=== PATIENT | male | born 1955 | race Caucasian/White ===

== ENCOUNTER 2022-07-19 18:34 | Emergency (ER) | payer MEDICARE, OTHER ==
[2022-07-19] MEDS ORDERED: ONDANSETRON 4 MG/2 ML VIAL IVP STA (19:04)
[2022-07-19] MEDS ORDERED: HYDROmorphone 1 MG/ML CARPUJECT IVP STA (19:04)
[2022-07-19 19:18] LABS: BASOPHILS # (AUTO) 0.1 10^3/uL (0.0-0.1); EOSINOPHILS # (AUTO) 0.2 10^3/uL (0.0-0.7); EOSINOPHILS % (AUTO) 2.1 %; HCT - HEMATOCRIT 26.9 % (42.0-52.0); HGB - HEMOGLOBIN 7.9 g/dL (14.0-18.0); LYMPHOCYTES # (AUTO) 1.2 10^3/uL (1.5-3.5); LYMPHOCYTES % (AUTO) 16.6 %; MEAN CORPUSCULAR HEMOGLOBIN 20.3 pg (27.0-31.0); MEAN CORPUSCULAR HGB CONC 29.4 g/dL (32.0-36.0); MEAN PLATELET VOLUME 8.3 fL (7.4-11.4); MONOCYTES # (AUTO) 0.6 10^3/uL (0.0-1.0); MONOCYTES % (AUTO) 7.9 %; NEUTROPHILS % (AUTO) 72.1 %; PLT - PLATELET COUNT 358 10^3/uL (130-450); RED CELL DISTRIBUTION WIDTH 20.2 % (12.0-15.0)
[2022-07-19 19:20] LABS: SLIDE REVIEW? Indicated
[2022-07-19 19:34] LABS: INR 1.9 (0.8-1.2); PT - PROTHROMBIN TIME 20.5 secs (9.9-12.6)
[2022-07-19 19:36] LABS: ALBUMIN 4.5 g/dL (3.2-5.5); ALBUMIN/GLOBULIN RATIO 1.5 (1.0-2.2); ALKALINE PHOSPHATASE 80 IU/L (42-121); ALT ALANINE AMINOTRANSFERASE 22 IU/L (10-60); AST ASPARTATE AMINOTRANSFERASE 26 IU/L (10-42); BILIRUBIN,TOTAL 0.5 mg/dL (0.2-1.0); BUN - BLOOD UREA NITROGEN 31 mg/dL (6-20); CALCIUM 9.2 mg/dL (8.5-10.3); CARBON DIOXIDE - CO2 24 mmol/L (21-32); CHLORIDE 106 mmol/L (101-111); CREATININE 1.2 mg/dL (0.6-1.2); ETOH - ETHANOL < 5.0 mg/dL; GFR - MDRD 60 (>89); GLUCOSE 102 mg/dL (70-100); LIPASE 45 U/L (22-51); POTASSIUM 4.4 mmol/L (3.5-5.0); SODIUM 139 mmol/L (135-145); TOTAL PROTEIN 7.6 g/dL (6.7-8.2)
[2022-07-19 19:38] LABS: PLATELET ESTIMATE, MANUAL NORMAL (130-450,000) (NORMAL); PLATELET MORPHOLOGY NORMAL APPEARANCE (NORMAL); WBC MORPHOLOGY (MULTIPLE) NORMAL APPEARANCE (NORMAL)
--- NOTE | 2022-07-19 19:56 | CT Report ---
PROCEDURE: HEAD WO INDICATIONS: FALL OFF LADDER ON WARFARIN TECHNIQUE: Noncontrast 4.5 mm thick angled axial sections acquired from the foramen magnum to the vertex. For r adiation dose reduction, the following was used: automated exposure control, adjustment of mA and/or kV according to patient size. COMPARISON: None. FINDINGS: Image quality: Excellent. CSF spaces: Basal cisterns are patent. No extra-axial fluid collections. Ventricles are normal in size and shape. Brain: No midline shift. No intracranial masses or hemorrhage. Lopez-white matter interface is norm al. Skull and face: Calvarium and visualized facial bones are intact, without suspicious lesions. Sinuses: Visualized sinuses and mastoids are clear. IMPRESSION: No evidence acute intracranial process. Reviewed by: Blu Barraza MD on 07/19/2022 7:55 PM PDT Approved by: Blu Barraza MD on 07/19/2022 7:55 PM PDT Station ID: [id number]
--- NOTE | 2022-07-19 20:00 | CT Report ---
PROCEDURE: CERVICAL SPINE WO INDICATIONS: FALL OFF LADDER, DISTRACTING INJ TECHNIQUE: Noncontrast 3 mm thick sections acquired from the skull base to the T4 level. Sagittal and coronal r eformats were then constructed. For radiation dose reduction, the following was used: automated exp osure control, adjustment of mA and/or kV according to patient size. COMPARISON: None. FINDINGS: Image quality: Excellent. Bones: No fractures or dislocations. Visualized superior ribs are intact. Advanced cervical spondy losis. Chronic 6 mm retrolisthesis of C5 on C6. Chronic anterior vertebral body height loss of C4, C5 , and C6. Severe canal stenosis at C5-C6. Severe multilevel facet arthropathy. Multilevel bony forami nal narrowing. Soft tissues: Prevertebral soft tissues are normal in thickness. No paravertebral he matomas. No apical pneumothoraces. IMPRESSION: 1. No evidence acute cervical fracture or dislocation. 2. Severe cervical spondylitic change. Findings include severe canal stenosis at C5-C6 and multilevel bony foraminal narrowing and advanced multilevel facet arthropathy. Reviewed by: Blu Barraza MD on 07/19/2022 7:59 PM PDT Approved by: Blu Barraza MD on 07/19/2022 7:59 PM PDT Station ID: [id number]
--- NOTE | 2022-07-19 20:08 | CT Report ---
PROCEDURE: CHEST W INDICATIONS: FALL OFF LADDER, L RIB PAIN, ON WARFARIN CONTRAST: IV CONTRAST: Optiray 320 ml: 100 PO CONTRAST: *NO PO CONTRAST TECHNIQUE: After the administration of intravenous contrast, 1 mm axial images were acquired from the pulmonary apices through the posterior costophrenic angles. Axial 5 mm soft tissue kernel reconstructions were performed as well as 8 mm axial MIP and coronal and sagittal 5 mm reformations. For radiation dose reduction, the following was used: automated exposure control, adjustment of mA and/or kV according to patient size. COMPARISON: Concurrent CT abdomen pelvis. FINDINGS: Image quality: Excellent. Lower Neck: No lymphadenopathy by size criteria. Thyroid: Visualized thyroid demonstrates no discrete nodules. Axillae: No lymphadenopathy by size criteria. Chest Wall: Unremarkable. Bones: There is a nonacute prior fracture of the left sixth rib laterally. Visualized osseous structu res demonstrate no suspicious lesions. Lungs and Airways: No pulmonary contusions or lacerations. No acute consolidation. No suspicious pu lmonary nodules. There is minimal dependent atelectasis. The trachea and central airways are patent. Pleura: No pneumothorax or pleural effusions. Heart: Heart size is normal. No pericardial effusion. Thoracic Vessels: The aorta and pulmonary arteries are normal in size. Mediastinum and Malika: No lymphadenopathy by size criteria. Esophagus: No wall thickening. There is a large hiatal hernia. Abdomen: Visualized upper abdominal solid organs appear normal. Upper abdominal bowel loops are nor mal in caliber. IMPRESSION: 1. No definite acute traumatic abnormality in the thorax. 2. Large hiatal hernia. Reviewed by: Brendan Fernandez MD on 07/19/2022 8:07 PM PDT Approved by: Brendan Fernandez MD on 07/19/2022 8:07 PM PDT Station ID: [id number]
--- NOTE | 2022-07-19 20:17 | CT Report ---
PROCEDURE: Abdomen/Pelvis W INDICATIONS: FALL OFF LADDER, L PAIN, ON WARFARIN CONTRAST: IV CONTRAST: Optiray 320 ml: 100 PO CONTRAST: *NO PO CONTRAST TECHNIQUE: After the administration of intravenous contrast, 5 mm thick sections acquired from the diaphragms to the symphysis. 5 mm thick coronal and sagittal reformats were acquired. For radiation dose reducti on, the following was used: automated exposure control, adjustment of mA and/or kV according to adan ent size. COMPARISON: Concurrent CT of the chest. FINDINGS: Image quality: Excellent. Lung bases:There is minimal dependent atelectasis. Heart: Heart is normal in size. There is a large hiatal hernia. ABDOMEN: Liver:No definite hepatic lacerations or perihepatic hematomas. Gallbladder: Within normal limits without calcified gallstones. Biliary ducts: No biliary ductal dilatation. Pancreas: Unremarkable. Spleen: Normal in size.No splenic lacerations or perisplenic hematomas. Adrenal Glands: No adrenal nodules. Kidneys and Ureters: No hydronephrosis.There is a right renal cortical cyst. Additional small low-d ensity foci are also demonstrated within the kidneys which are too small to characterize but likely r epresent cysts. No perinephric hematomas. Stomach and Bowel: Stomach, small bowel loops, and colon are normal in caliber and wall thickness. T here is colonic diverticulosis without acute diverticulitis. Peritoneum: No abnormal intraperitoneal fluid. No free air. Ventral Wall: No hernia. Abdominal Nodes: No retroperitoneal or mesenteric adenopathy by size criteria. Vessels: Aorta and inferior vena cava are normal in size. PELVIS: Pelvic Organs: Unremarkable. Bladder: Unremarkable. Pelvic Nodes: No enlarged lymph nodes. Miscellaneous: No inguinal hernias are seen. Bones: No acute fractures identified. There is multilevel degenerative disc disease. Facet joint art hropathy demonstrated in the lower lumbar spine. Visualized osseous structures demonstrate no suspici ous focal lesions. IMPRESSION: 1. No acute traumatic abnormality in the abdomen or pelvis. 2. Colonic diverticulosis without acute diverticulitis. 3. Large hiatal hernia. Reviewed by: Brendan Jacobsen MD on 07/19/2022 8:16 PM PDT Approved by: Brendan Jacobsen MD on 07/19/2022 8:16 PM PDT Station ID: [id number]
[2022-07-19] MEDS ORDERED: LIDOCAINE PATCH 5% TOP STA (20:33)
--- NOTE | 2022-07-19 20:33 | ED Physician Documentation ---
History of Present Illness - Stated complaint Stated Complaint: FALL - Chief complaint Chief Complaint: Trauma Ch/Bk - History obtained from History obtained from: Patient - History of Present Illness Timing: Prior to arrival - Additonal information Additional information: 67-year-old male with history of hypertension, hyperlipidemia, peripheral arterial disease on warfarin, anemia (reports last hemoglobin 7.6) chronic lumbar back pain presents by private vehicle for evaluation of left-sided rib pain after falling off a ladder just prior to arrival. Patient states that he was painting on a ladder when the ladder leg slipped. The patient then fell "approximately 4 feet" landing his left ribs on the ladder and then rolling down the driveway. Denies hitting his head, denies loss of consciousness. He is on warfarin, last INR checked was 3 weeks ago and it was 1.9. No medications taken for symptoms prior to arrival. Reporting significant left-sided rib pain. Difficulty breathing due to pain in his ribs. Review of Systems Ten Systems: 10 systems reviewed and negative Constitutional: denies: Fever, Chills, Myalgias Cardiac: reports: Chest pain / pressure. denies: Palpitations, Calf pain Respiratory: reports: Dyspnea. denies: Cough, Wheezing GI: denies: Abdominal Pain, Abdominal Swelling, Nausea, Vomiting Skin: denies: Rash, Lesions, Abrasion (s) Musculoskeletal: denies: Neck pain, Back pain, Joint pain Neurologic: denies: Generalized weakness, Focal weakness, Numbness, Difficulty speaking PD PAST MEDICAL HISTORY - Past Medical History Past Medical History: Yes Cardiovascular: Hypertension, High cholesterol, Peripheral Vascular Disease - Present Medications Home Medications: Ambulatory Orders Medication Instructions Recorded Confirmed Lidocaine Patch 5% [Lidoderm Patch] 1 patch TOP DAILY PRN #5 patch 07/19/22 Naproxen 250 mg PO BID PRN #15 tablet 07/19/22 Ondansetron Odt [Zofran] 4 mg TL Q6H PRN #10 tablet 07/19/22 Oxycodone HCl/Acetaminophen 1 - 2 each PO Q6H PRN #10 tablet 07/19/22 [Percocet 5-325 mg Tablet] - Allergies Allergies/Adverse Reactions: Allergies Allergy/AdvReac Type Severity Reaction Status Date / Time morphine Allergy Emesis Verified 07/19/22 18:41 PD ED PE NORMAL - Vitals Vital signs reviewed: Yes - General General: Alert and oriented X 3, Well developed/nourished, Other (in pain) - HEENT HEENT: Atraumatic, PERRL, EOMI - Neck Neck: Supple, no meningeal sign, No bony TTP, Other (distracting injury present (L ribs)) - Cardiac Cardiac: RRR, Strong equal pulses - Respiratory Respiratory: No respiratory distress, Clear bilaterally, Other (shallow inspiration due to pain) - Abdomen Abdomen: Soft, Non distended, Other (L flank pain) - Back Back: No spinal TTP, Other (L flank pain) - Derm Derm: Warm and dry, No rash, Other (superficial abrasion L ribs) - Extremities Extremities: No deformity, No tenderness to palpate, Normal ROM s pain - Neuro Neuro: Alert and oriented X 3, hull molder 2-12 intact, No motor deficit, No sensory deficit, Normal speech - Psych Psych: Normal mood, Normal affect Results - Vitals Vitals: Vital Signs - 24 hr 07/19/22 07/19/22 07/19/22 18:41 19:50 20:58 Temperature 36.5 C 36.5 C Heart Rate 86 80 80 Respiratory 20 18 18 Rate Blood Pressure 122/71 120/78 120/80 O2 Saturation 100 98 98 Oxygen O2 Source Room air - Labs Labs: Laboratory Tests 07/19/22 07/19/22 07/19/22 19:05 19:05 19:05 WBC 7.0 RBC 3.90 L Hgb 7.9 L Hct 26.9 L MCV 69.0 L MCH 20.3 L MCHC 29.4 L RDW 20.2 H Plt Count 358 MPV 8.3 Neut # (Auto) 5.0 Lymph # (Auto) 1.2 L [place] # (Auto) 0.6 Eos # (Auto) 0.2 Baso # (Auto) 0.1 Absolute Nucleated RBC 0.00 Nucleated RBC % 0.0 Manual Slide Review Indicated WBC Morphology NORMAL APPEARANCE Platelet Estimate NORMAL (130-450,000) Platelet Morphology NORMAL APPEARANCE RBC Morph Micro Appear 3+ HYPOCHROMASIA PT 20.5 H INR 1.9 H Sodium 139 Potassium 4.4 Chloride 106 Carbon Dioxide 24 Anion Gap 9.0 BUN 31 H Creatinine 1.2 Estimated GFR (MDRD) 60 L Glucose 102 H Lactic Acid Calcium 9.2 Total Bilirubin 0.5 AST 26 ALT 22 Alkaline Phosphatase 80 Troponin I High Sens Total Protein 7.6 Albumin 4.5 Globulin 3.1 Albumin/Globulin Ratio 1.5 Lipase 45 Ethyl Alcohol < 5.0 07/19/22 07/19/22 19:05 19:11 WBC RBC Hgb Hct MCV MCH MCHC RDW Plt Count MPV Neut # (Auto) Lymph # (Auto) [place] # (Auto) Eos # (Auto) Baso # (Auto) Absolute Nucleated RBC Nucleated RBC % Manual Slide Review WBC Morphology Platelet Estimate Platelet Morphology RBC Morph Micro Appear PT INR Sodium Potassium Chloride Carbon Dioxide Anion Gap BUN Creatinine Estimated GFR (MDRD) Glucose Lactic Acid 1.0 Calcium Total Bilirubin AST ALT Alkaline Phosphatase Troponin I High Sens 7.7 Total Protein Albumin Globulin Albumin/Globulin Ratio Lipase Ethyl Alcohol PD MEDICAL DECISION MAKING - ED course Complexity details: reviewed results, re-evaluated patient, considered differential, d/w patient, d/w family ED course: Fall off a ladder on warfarin. Patient denies hitting his head, but did fall off of a ladder and rolled down the driveway, he is on warfarin and has distracting injury present. Patient given pain medications and taken quickly to CT scan for evaluation. Thankfully no acute traumatic injuries were seen, patient does have old left-sided rib fracture but no pneumothorax, no hemothorax, no new or acute rib fractures. Patient reported improvement with pain medications. He was relieved to know that his INR is still where it needs to be and his hemoglobin today is 7.9, which is somewhat better than when he had it last measured. He is also relieved to know that there are no rib fractures. Patient was given pain medications and counseled on the importance of taking deep breaths to avoid atelectasis and pneumonia. [facility] with [facility] Percocet prepack. Counseled to take these medications with anti-inflammatories. Patient discharged to the care of his daughter in stable condition. Departure - Departure Disposition: 01 Home, Self Care Clinical Impression: Contusion of chest wall Condition: Stable Instructions: ED Contusion Soft Tissue, ED Contusion Rib Prescriptions: Lidocaine Patch 5% [Lidoderm Patch] 1 patch TOP DAILY PRN #5 patch PRN Reason: Pain Naproxen 250 mg PO BID PRN #15 tablet PRN Reason: Pain Oxycodone HCl/Acetaminophen [Percocet 5-325 mg Tablet] 1 - 2 each PO Q6H PRN #10 tablet PRN Reason: pain Ondansetron Odt [Zofran] 4 mg TL Q6H PRN #10 tablet PRN Reason: Nausea / Vomiting Comments: Your scans today are negative for acute fractures. You have an old rib fracture on the left side, but no new fractures or injuries. Your labs today were significant for an INR 1.9 and a hemoglobin of 7.9. Please follow-up as needed with your primary care physician for your regularly scheduled follow-up. You are being discharged with several medications for pain today. Percocet is for breakthrough pain as needed. Naproxen is an anti-inflammatory that you may take for pain. Lidocaine patches may be applied to your rib area for comfort. Percocet may cause constipation, please take a laxative if you take this medication. The Percocet may also cause drowsiness, please do not take with alcohol and do not operate heavy machinery when taking this medication. Discharge Date/Time: 07/19/22 20:58
[2022-07-19] MEDS ORDERED: oxyCODONE/ACET 5/325 Prepack 4 PO STA (20:41)
[2022-07-19 21:00] VITALS: BP 120/80
== END 2022-07-19 20:58 | disposition home or self-care (01) ==
LOC: ED 18:34
DX: S20.212A Contusion of left front wall of thorax, initial encounter (principal); W11.XXXA Fall on and from ladder, initial encounter; I10 Essential (primary) hypertension; I73.9 Peripheral vascular disease, unspecified; Z79.01 Long term (current) use of anticoagulants
CPT/HCPCS: 36415; 70450; 71260; 72125; 74177; 80053; 83605; 83690; 84484; 85025; 85610; 93005; 96374; 96375; 99282; 99284; A9270; G0480; J1170; Q9967; 80320

== ENCOUNTER 2024-06-24 10:37 | Outpatient (CLI) | payer MEDICARE, OTHER | END 2024-06-24 10:38 | disposition home or self-care (01) | LOC: LAB 10:37 | PROVIDERS: ATTEND Family Medicine | DX: T82.898D Other specified complication of vascular prosthetic devices, implants and grafts, subsequent encounter (principal) | CPT/HCPCS: 36416; 85610 ==

== ENCOUNTER 2024-06-29 10:25 | Outpatient (CLI) | payer MEDICARE, OTHER | END 2024-06-29 10:26 | disposition home or self-care (01) | LOC: LAB 10:25 | PROVIDERS: ATTEND Family Medicine | DX: T82.898D Other specified complication of vascular prosthetic devices, implants and grafts, subsequent encounter (principal) | CPT/HCPCS: 36416; 85610 ==